=== PATIENT | male | born 1950 | race Two or more races ===

== ENCOUNTER 2016-06-13 22:18 | Emergency (ER) | payer SELFPAY ==
[~2016-06-13] VITALS: Ht 172.7 cm; Wt 70.8 kg
[2016-06-13] MEDS ORDERED: METF500T PO (22:37)
[2016-06-13] MEDS ORDERED: SIMV40TA2 PO (22:37)
[2016-06-13] MEDS ORDERED: LISI10TA4 PO (22:37)
[2016-06-13] MEDS ORDERED: NS 1,000 ML IV ONE (23:30)
[2016-06-13] MEDS ORDERED: ACETAMINOPHEN TAB 650MG DOSE (2X325MG) PO ONE (23:30)
[2016-06-13 23:51] LABS: VENOUS BASE EXCESS 1.1 (-2.0-2.0); VENOUS O2 SATURATION 89.7 % (60.0-80.0); VENOUS PARTIAL PRESSURE CO2 38.9 mmHg (38.0-50.0); VENOUS STANDARD HCO3 25.3 MEQ/L; VENOUS TOTAL CO2 26.5 MEQ/L (24.0-28.0)
[2016-06-13 23:55] LABS: MEAN CORPUSCULAR HEMOGLOBIN 31.5 pg (27.0-33.0); MEAN CORPUSCULAR HGB CONC 33.5 g/dl (32.0-36.5); MEAN CORPUSCULAR VOLUME 93.9 fl (80.0-96.0); PLATELET COUNT, AUTOMATED 155 k/mm3 (150-450); RED CELL DISTRIBUTION WIDTH 12.7 % (11.5-14.5); WHITE BLOOD COUNT 7.8 K/mm3 (4.0-10.0)
--- NOTE | 2016-06-14 | REPUSA ---
CT of the head Clinical history: fall, injury. Protocol: Multiple axial CT images obtained with 5 mm slice thickness were obtained through the head without administration of contrast. Findings: The ventricles and sulci are symmetric but prominent in size bilaterally. There are periven tricular areas of low attenuation throughout the deep white matter. There is no evidence of acute hem orrhage or infarct. There is no midline shift, mass effect, or extra-axial fluid collection. The osse ous structures are unremarkable. There is moderate amount of fluid in the visualized portions of the right ethmoid and right maxillary sinuses. The other visualized paranasal sinuses and mastoid air shanta ls are clear. Impression: 1. No acute hemorrhage or infarct. Findings are consistent with age-related atrophy and chronic small vessel ischemic disease. 2. Moderate amount of right ethmoid and maxillary sinusitis.
[2016-06-14 00:03] LABS: OSMOLALITY SERUM 299 MOSM/KG (280-301)
[2016-06-14 00:10] LABS: ANION GAP 11 MEQ/L (8-16); BLOOD UREA NITROGEN 26 MG/DL (7-18); CALCIUM LEVEL 8.8 MG/DL (8.8-10.2); CARBON DIOXIDE LEVEL 25 MEQ/L (21-32); CHLORIDE LEVEL 95 MEQ/L (98-107); GLOMERULAR FILTRATION RATE 59.4 (>49); MAGNESIUM LEVEL 1.7 MG/DL (1.8-2.4); POTASSIUM SERUM 3.9 MEQ/L (3.5-5.1); SODIUM LEVEL 131 MEQ/L (136-145)
[2016-06-14 00:13] LABS: BANDS 6 % (< 11); BASOPHILS 1 % (0-4)
[2016-06-14 00:14] LABS: TOXIC VACUOLATION 1+
[2016-06-14 00:14] LABS: GLUCOSE, FASTING 491 MG/DL (80-110)
[2016-06-14] MEDS ORDERED: HumuLIN R (REGULAR) INSULIN (NovoLIN R) **100U/ML** PER UNIT IV ONE ×2 (01:15→06:00)
[2016-06-14] MEDS ORDERED: NS 1,000 ML IV ONE ×2 (01:15→02:45)
[2016-06-14 06:04] VITALS: BP 105/58
[2016-06-14] MEDS ORDERED: SIMV40TA2 PO (06:06)
[2016-06-14] MEDS ORDERED: LISI10TA4 PO (06:06)
[2016-06-14] MEDS ORDERED: METF500T PO (06:06)
--- NOTE | 2016-06-14 07:52 | REP ---
Clinical: Fever . Comparison: None . Technique: PA and lateral. Findings: The mediastinum and cardiac silhouette are normal. The lung walters are clear and without acute consolidation, effusion, or pneumothorax. The skeletal structures are intact and normal. Impression: 1. No acute cardiopulmonary process. Signed by Mekhi Rabago MD 06/14/2016 07:43 A
--- NOTE | 2016-06-14 09:39 | ECGEPIP ---
Stationary ECG Study [facility] - ED Test Date: 2016-06-13 Pat Name: MARSHA MITCHELL Department: Room: - Gender: M Plating Department Helper: gerard : 1950 Requested By: CLARIBEL Ambrose Order Number: [id number] Reading MD: Maty Omalley Measurements Intervals [place] Rate: 103 P: 66 RI: 140 QRS: -35 QRSD: 101 T: 55 QT: 333 QTc: 438 Interpretive Statements SINUS TACHYCARDIA MARKED LEFT AXIS DEVIATION LVH ?PRIOR INFEROR INFARCT NSTTW ABNORMALITY NO PRIOR FOR COMPARISON Electronically Signed On 06-14-2016 9:39:11 EDT by Maty Omalley
== END 2016-06-14 08:13 | disposition home or self-care (01) ==
LOC: EDBD 22:18 → M ED 23:08
DX: S01.81XA Laceration without foreign body of other part of head, initial encounter (principal); W19.XXXA Unspecified fall, initial encounter; Y92.018 Other place in single-family (private) house as the place of occurrence of the external cause; Y93.89 Activity, other specified; Y99.8 Other external cause status; E11.65 Type 2 diabetes mellitus with hyperglycemia; Z91.19 Patient's noncompliance with other medical treatment and regimen; I10 Essential (primary) hypertension; Z79.899 Other long term (current) drug therapy; Z79.84 Long term (current) use of oral hypoglycemic drugs
CPT/HCPCS: 36415; 70450; 71020; 80048; 81001; 82010; 82803; 83036; 83735; 83930; 85025; 87088; 87186; 87804; 93005; 93041; 96360; 96361; 99285; G0480

== ENCOUNTER → 2016-07-05 | Outpatient (REF) | payer MEDICAID, OTHER ==
[~2016-07-05] MED LIST: LISI10TA4 PO; METF500T PO; SIMV40TA2 PO
[2016-07-05 12:21] LABS: ANION GAP 8 MEQ/L (8-16); BLOOD UREA NITROGEN 29 MG/DL (7-18); CALCIUM LEVEL 8.2 MG/DL (8.8-10.2); CARBON DIOXIDE LEVEL 28 MEQ/L (21-32); CHLORIDE LEVEL 95 MEQ/L (98-107); CREATININE FOR GFR 1.14 MG/DL (0.70-1.30); GLOMERULAR FILTRATION RATE > 60.0 (>49); SODIUM LEVEL 131 MEQ/L (136-145)
[2016-07-05 12:23] LABS: GLUCOSE, FASTING 604 MG/DL (80-110); POTASSIUM SERUM 5.4 MEQ/L (3.5-5.1)
== END ==
LOC: M SFHCPLAZ 08:08
PROVIDERS: ATTEND Family Medicine
DX: E87.1 Hypo-osmolality and hyponatremia (principal)

== ENCOUNTER → 2016-07-19 | Outpatient (REF) | payer MEDICAID ==
[2016-07-19 12:01] LABS: ALBUMIN 3.4 GM/DL (3.2-5.2); ALBUMIN/GLOBULIN RATIO 1.03 (1.00-1.93); ALKALINE PHOSPHATASE 96 U/L (45-117); ALT/SGPT 19 U/L (12-78); ANION GAP 6 MEQ/L (8-16); AST/SGOT 9 U/L (15-37); BILIRUBIN,TOTAL 0.4 MG/DL (0.2-1.0); BLOOD UREA NITROGEN 22 MG/DL (7-18); CALCIUM LEVEL 8.9 MG/DL (8.8-10.2); CARBON DIOXIDE LEVEL 30 MEQ/L (21-32); CHLORIDE LEVEL 97 MEQ/L (98-107); CHOLESTEROL LEVEL 139 MG/DL (<200); CREATININE FOR GFR 0.91 MG/DL (0.70-1.30); GLOMERULAR FILTRATION RATE > 60.0 (>49); GLUCOSE, FASTING 275 MG/DL (80-110); POTASSIUM SERUM 4.6 MEQ/L (3.5-5.1); SODIUM LEVEL 133 MEQ/L (136-145); TOTAL PROTEIN 6.7 GM/DL (6.4-8.2); TRIGLYCERIDES LEVEL 185 MG/DL (<150)
== END ==
LOC: M SFHCPLAZ 09:08
PROVIDERS: ATTEND Family Medicine
DX: E11.9 Type 2 diabetes mellitus without complications (principal); Z13.220 Encounter for screening for lipoid disorders